=== PATIENT | male | born 1990 | race Caucasian/White ===

== ENCOUNTER → 2021-05-27 10:51 | Outpatient (REF) | payer MEDICAID, SELFPAY ==
--- NOTE | 2021-05-27 11:01 | ECG_ITS ---
Test Reason : QT PROLONG MEDS Blood Pressure : / mmHG Vent. Rate : 087 BPM Atrial Rate : 087 BPM P-R Int : 138 ms QRS Dur : 086 ms QT Int : 404 ms P-R-T Axes : 069 -53 062 degrees QTc Int : 486 ms Normal sinus rhythm Left anterior fascicular block Prolonged QT Abnormal ECG No previous ECGs available Referred By: Sophia Munguia Electronically Signed By:MILLA DAVE
== END ==
LOC: HO.CARD 10:51
PROVIDERS: PCP Internal Medicine; Visit Provider Family Medicine
DX: Z79.899 Other long term (current) drug therapy (principal)
CPT/HCPCS: 93005